=== PATIENT | female | born 1960 | race Caucasian/White ===

== ENCOUNTER → 2022-09-27 | Outpatient (CLI) | payer MEDICARE ==
--- NOTE | 2022-09-27 13:12 | CT ---
EXAMINATION TYPE: CT angio chest DATE OF EXAM: 09/27/2022 COMPARISON: Radiograph 12/21/2021 HISTORY: 61-year-old female R06.02, SOB TECHNIQUE: Contiguous axial scanning of the chest performed with IV Contrast, patient injected with 7 0cc mL of Isovue 370. Coronal/sagittal MIP reconstructions performed. CT DLP: 477 mGycm Automated exposure control for dose reduction was used. FINDINGS: Heart normal size without pericardial effusion. No reflux of contrast into the hepatic veins. Scatter ed mild LAD coronary artery calcifications are present. Aorta normal caliber with mild atherosclerotic arch calcifications. Mild atherosclerotic narrowing at the origin of the left subclavian artery. Mild ectasia lower descending thoracic aorta to 2.7 cm. Satisfactory opacification of the pulmonary arterial system without evidence for pulmonary embolus. No thoracic lymphadenopathy by CT size criteria. Mild emphysematous change particularly in the upper and mid lungs. No consolidation or pleural effusi on. Visualized abdomen shows moderate atherosclerotic changes throughout the mid and distal abdominal aor ta. Mild degenerative disc disease mid to lower thoracic spine. IMPRESSION: 1. SOME SCATTERED MILD LAD CORONARY ARTERY CALCIFICATIONS. 2. NO EVIDENCE FOR PULMONARY EMBOLUS. 3. COPD with mild emphysema.
== END | disposition home or self-care (01) ==
LOC: RADCTMAIN 12:18
PROVIDERS: ATTEND Internal Medicine
DX: I25.10 Atherosclerotic heart disease of native coronary artery without angina pectoris (principal); J43.9 Emphysema, unspecified
CPT/HCPCS: 71275; Q9967

== ENCOUNTER → 2024-03-29 | Outpatient (CLI) | payer MEDICARE ==
--- NOTE | 2024-04-08 10:50 | CTL ---
EXAMINATION TYPE: CT Low Dose Lung DATE OF EXAM: 03/29/2024 1:35 PM CLINICAL INDICATION:Female, 63 years old with history of Z12.2 lung cancer screening; F17.210 current smoker; smoker , history of tobacco use. COMPARISON: None. TECHNIQUE: Multiple axial non-contrast scans were obtained from approximately the lung apices through the upper abdomen. Coronal and sagittal reformatted images were obtained. Low dose technique was uti lized. CT DLP: 84.4 mGycm, Automated exposure control for dose reduction was used. CT Contrast: Contrast used: None Oral contrast used: None FINDINGS: ======== Lack of intravenous contrast and low dose technique limits the evaluation of the vascular and soft ti ssue structures. LUNGS: No evidence of pulmonary fibrosis. No evidence of focal consolidation, pneumothorax or pleural effusion. Nodules: RUL: None. RML: None. RLL: None. MAYURI: None. LLL: None. AIRWAY: Patent and unremarkable. HEART: Size within normal limits. Mild calcific atherosclerotic disease. MEDIASTINUM: No gross evidence of pathologic lymph nodes by size criteria. VASCULATURE: No aortic aneurysm. MUSCULOSKELETAL: No acute osseous abnormalities SOFT TISSUES/LYMPH NODES: Unremarkable. LOWER NECK: No significant findings. UPPER ABDOMEN: A nonobstructing left 4 mm nephrolith. No acute findings. IMPRESSION: 1. No clinically significant pulmonary nodules. CT LUNG RAD AND CT CHEST RECOMMENDATION: Lung-Rad 1 Negative: Continue annual screening with LDCT in 12 months. S Modifier (other clinically significant findings): S (coronary artery disease). Recommend smoking cessation (if current smoker), or continuation of smoking cessation (if prior smoke r). Annual screening for lung cancer with low-dose computed tomography is recommended in adults ages 55 to 77 years who have a 30 pack-year smoking history and currently smoke or have quit within the pa st 15 years. Screening should be discontinued once a person has not smoked for 15 years or develops a health problem that substantially limits life expectancy or the ability or willingness to have curat jay lung surgery. Lung rads 2021 [email or web address]
== END | disposition home or self-care (01) ==
LOC: RADCTMAIN 13:07
PROVIDERS: ATTEND Internal Medicine
DX: Z12.2 Encounter for screening for malignant neoplasm of respiratory organs (principal); F17.210 Nicotine dependence, cigarettes, uncomplicated
CPT/HCPCS: 71271

== ENCOUNTER → 2025-04-09 | Outpatient (CLI) | payer MEDICARE ==
--- NOTE | 2025-04-09 13:15 | FL ---
EXAMINATION TYPE: FL barium swallow DATE OF EXAM: 04/09/2025 11:50 AM COMPARISON: CT abdomen pelvis most recent from CLINICAL INDICATION: Female, 64 years old with history of R13.19 OTHER DYSPHAGIA, patient reports bay rseness, throat irritation, and reflux. Total Fluoroscopy Time: 2 minutes 2 seconds Total DAP: 100 mGycm2 39 images obtained. FINDINGS: The swallowing mechanism is normal and hypopharyngeal anatomy is preserved. The cervical and thoracic portions have a normal course and caliber. Mild tertiary peristaltic waves are demonstrated. The mucosa is normal and no persistent filling defect is encountered. There is a small sliding hiatal hernia present. Gastroesophageal reflux could not be elicited with Va lsalva or positional maneuvers during the course of the exam. IMPRESSION: 1. Mild esophageal dysmotility, probably age related change. 2. Small sliding hiatal hernia. 3. No other specific abnormality identified on esophagram. [facility], , 04/09/2025 1:13 PM
== END | disposition home or self-care (01) ==
LOC: RADFLMAIN 10:37
PROVIDERS: ATTEND Surgery Plastic and Reconstructive Surgery
DX: K22.4 Dyskinesia of esophagus (principal); R13.19 Other dysphagia; K44.9 Diaphragmatic hernia without obstruction or gangrene; K21.9 Gastro-esophageal reflux disease without esophagitis
CPT/HCPCS: 74220

== ENCOUNTER 2025-04-17 08:29 | Day surgery (SDC) | payer MEDICARE ==
--- NOTE | 2025-04-17 07:50 | P.GSHP ---
History of Present Illness H&P Date: 04/17/25 CHIEF COMPLAINT: Esophageal stricture HISTORY OF PRESENT ILLNESS: The patient is a 64-year-old female who presents reports dysphagia. Upper endoscopy was offered for further evaluation and management. PAST MEDICAL HISTORY: Please see list. PAST SURGICAL HISTORY: Please see list. MEDICATIONS: Please see list. ALLERGIES: Please see list. SOCIAL HISTORY: No illicit drug use FAMILY HISTORY: No reports of Crohn disease or ulcerative colitis. REVIEW OF ORGAN SYSTEMS: CONSTITUTIONAL: No reports of fevers or chills. GI: Denies any blood in stools or constipation. PHYSICAL EXAM: VITAL SIGNS: Stable GENERAL: Well-developed and pleasant in no acute distress. HEENT: No scleral icterus. Extraocular movements grossly intact. Moist buccal mucosa. NECK: Supple without lymphadenopathy. CHEST: Unlabored respirations. Equal bilateral excursions. CARDIOVASCULAR: Regular rate and rhythm. Distal 2+ pulses. ABDOMEN: Soft, nondistended. MUSCULOSKELETAL: No clubbing, cyanosis, or edema. ASSESSMENT: 1. Esophageal stricture PLAN: 1. Recommend proceeding with an upper endoscopy with rigid dilators. Past Medical History Past Medical History: GERD/Reflux, Hyperlipidemia, Skin Disorder Additional Past Medical History / Comment(s): seasonal allergies, psoriasis, hiatal hernia, increased epigatric discomfort History of Any Multi-Drug Resistant Organisms: None Reported Additional Past Surgical History / Comment(s): egd, colonoscopy, rt hand surgery - lost pointer finger Past Anesthesia/Blood Transfusion Reactions: Family History of Problems w/ Anesthesia Additional Past Anesthesia/Blood Transfusion Reaction / Comment(s): brother nausea/vomiting Smoking Status: Current every day smoker - Past Family History Father Family Medical History: Cancer Additional Family Medical History / Comment(s): colon cancer Brother(s) Family Medical History: Cancer Additional Family Medical History / Comment(s): colon cancer Sister(s) Family Medical History: Deep Vein Thrombosis (DVT) Additional Family Medical History / Comment(s): another sister with chronic lung infection. "old fashioned TB" on meds improved Medications and Allergies Home Medications Medication Instructions Recorded Confirmed Type Unk Nickerson 3 1 tab PO DAILY 04/16/25 04/16/25 History Ascorbic Acid [Vitamin C] 500 mg PO DAILY 04/16/25 04/16/25 History Caltrate 600mg 1 tab PO DAILY 04/16/25 04/16/25 History Multivit-Min/Iron/Folic/Lutein 1 each PO DAILY 04/16/25 04/16/25 History [Centrum Silver Women Tablet] Pantoprazole Sodium 20 mg PO DAILY 04/16/25 04/16/25 History Pravastatin Sodium [Pravachol] 40 mg PO HS 04/16/25 04/16/25 History Unk Claritan 1 tab PO DAILY 04/16/25 04/16/25 History Unk Taltz 1 injection SQ Q30D 04/16/25 04/16/25 History Allergies Allergy/AdvReac Type Severity Reaction Status Date / Time cephalexin [From Keflex] Allergy Rapid Verified 04/16/25 09:28 Heart Rate
[~2025-04-17 08:29] MED LIST: LIDOCAINE 1% (10MG/ML) FOR IV START INTRADERMA PRN
[2025-04-17] MEDS: IV FLUID CONTINUATION 1,000 ML IV ONE (08:50)
[2025-04-17 08:57] VITALS: TEMP 97.4
[2025-04-17] MEDS: LACTATED RINGERS 1,000 ML IV SCH (09:16)
[2025-04-17] MEDS ORDERED: PROPOFOL 10 MG/ML 20 ML VIAL IV ONE (09:44)
[2025-04-17] MEDS ORDERED: LIDOCAINE 2% (PF) 20 MG/ML 5 ML VIAL ONE (09:44)
--- NOTE | 2025-04-17 09:58 | P.PCN ---
Date of Procedure: 04/17/25 Description of Procedure: PREOPERATIVE DIAGNOSIS: Gastroesophageal reflux disease. Dysphagia Hiatal hernia POSTOPERATIVE DIAGNOSIS: Gastroesophageal reflux disease. Gastritis. Diaphragmatic hiatal hernia OPERATION: Esophagogastroduodenoscopy with cold forceps biopsies along esophagus, antrum and duodenum SURGEON: Christina Dumont MD ANESTHESIA: MAC. INDICATIONS: The patient is a 64-year-old female who presents with dysphagia and reflux disease. Benefits and risks of the procedure were described. Informed consent was obtained. DESCRIPTION: The patient was brought into the endoscopy suite and laid in the left lateral decubitus position. An Olympus gastroscope was passed along the posterior maria m pharynx down to the distal esophagus where the squamocolumnar junction was encountered at 37 cm from the incisors. The stomach was entered and no bile reflux was found. Additional findings are listed below. Biopsies with cold forceps were obtained of the antrum. The first through third portion of the duodenum was examined. Retroflexion of the scope confirmed Hill grade 3 lower esophageal valve. The squamocolumnar junction demonstrated LA grade B erosive esophagitis. The stomach was desufflated. The patient tolerated the procedure well. FINDINGS: Squamocolumnar junction 37 cm from the incisors. Diaphragmatic hiatus at 38 cm. Hiatal hernia, 1 cm Hill grade 3 lower esophageal valve. LA grade B erosive esophagitis. Biopsies obtained Biopsies obtained of the duodenum. Chronic gastritis with biopsies obtained. RECOMMENDATIONS: Upper endoscopy as needed.
[2025-04-17 10:14] VITALS: BP 118/76; PULSE 61; RESP 18
== END 2025-04-17 10:36 | disposition home or self-care (01) ==
LOC: ORWHC2ENDO 08:29
PROVIDERS: ATTEND Surgery Plastic and Reconstructive Surgery
DX: K29.50 Unspecified chronic gastritis without bleeding (principal); K21.00 Gastro-esophageal reflux disease with esophagitis, without bleeding; K31.89 Other diseases of stomach and duodenum; K44.9 Diaphragmatic hernia without obstruction or gangrene; K22.2 Esophageal obstruction; E78.5 Hyperlipidemia, unspecified; F41.9 Anxiety disorder, unspecified; F17.210 Nicotine dependence, cigarettes, uncomplicated; Z80.0 Family history of malignant neoplasm of digestive organs; Z88.1 Allergy status to other antibiotic agents; Z79.899 Other long term (current) drug therapy
CPT/HCPCS: 88305; 43239; J2704; J2003